=== PATIENT | female | born 1960 | race Caucasian/White ===

== ENCOUNTER 2023-02-04 12:44 | Day surgery (SDC) | payer BC ==
[2023-02-04] MEDS ORDERED: IBUP-24 PO (13:35)
[2023-02-04] MEDS ORDERED: IPRA3AMP31 NEB (13:35)
[2023-02-04] MEDS ORDERED: ATOR20TA66 PO (13:35)
[2023-02-04] MEDS ORDERED: LEVO88TA2 PO (13:36)
[2023-02-04] MEDS ORDERED: TIRZ5PEN SUBCUT (13:48)
[2023-02-04] MEDS ORDERED: AMOX-580 PO (13:48)
[2023-02-04 14:00] VITALS: RESP 16; O2SAT 97
[2023-02-04] MEDS ORDERED: fentaNYL/PF 50MCG/1 ML 2ML syringe ONE (14:28)
[2023-02-04] MEDS ORDERED: midazolam 1 mg/ML 2ml injection ONE ×2 (14:28→14:54)
[2023-02-04 14:37] LABS: BASOPHILS % (AUTO) 0.6 % (0-1); EOSINOPHILS # (AUTO) 0.1 X10'3 (0-0.9); EOSINOPHILS % (AUTO) 1.4 % (0-6); HEMATOCRIT 45.3 % (35.0-45.0); HEMOGLOBIN 15.6 g/dl (12.0-16.0); LYMPHOCYTES % (AUTO) 36.2 % (21-51); MEAN CORPUSCULAR HEMOGLOBIN 34.5 PG (27.0-31.0); MEAN CORPUSCULAR HGB CONC 34.5 g/dL (33.0-36.5); MEAN CORPUSCULAR VOLUME 100.1 FL (78-98); MEAN PLATELET VOLUME 8.7 FL (7.4-10.4); MONOCYTES # (AUTO) 0.5 X10'3 (0-0.9); MONOCYTES % (AUTO) 5.5 % (2-12); NEUTROPHILS # (AUTO) 4.7 X10'3 (1.8-7.7); NEUTROPHILS % (AUTO) 56.3 % (42-75); PLATELET COUNT 271 X10'3 (140-440); RED BLOOD COUNT 4.53 X10'6 (4.20-5.60); RED CELL DISTRIBUTION WIDTH 13.4 % (11.5-14.5); WHITE BLOOD COUNT 8.4 X10'3 (4.5-11.0)
[2023-02-04 14:39] LABS: ANION GAP 11 (8-16); BLOOD UREA NITROGEN 7 MG/DL (7-18); BUN/CREATININE RATIO 10.4 (10.0-20.0); CALCIUM 9.5 MG/DL (8.5-10.1); CHLORIDE 103 MMOL/L (99-107); CREATININE 0.67 MG/DL (0.40-0.90); GLUCOSE 91 MG/DL (70-104); POTASSIUM 3.7 MMOL/L (3.5-5.1); SODIUM 138 MMOL/L (135-145); TOTAL CARBON DIOXIDE 24.1 MMOL/L (24-32); eGFR 89 ML/MIN
[2023-02-04 14:42] LABS: PROTHROMBIN TIME 10.3 SECONDS (9.0-12.0)
[2023-02-04] MEDS ORDERED: LIDOcaine 1% (10mg/ml)w/preservative inj. 20ml MDV ONE (14:54)
[2023-02-04] MEDS ORDERED: clopidogrel 300mg tablet ONE (15:08)
[2023-02-04] MEDS ORDERED: aspirin 325mg tablet ONE (15:08)
[2023-02-04 15:37] VITALS: BP 175/88; PULSE 75; RESP 15; O2SAT 96
[2023-02-04 16:06] VITALS: BP 179/92; PULSE 78; RESP 14; O2SAT 95
[2023-02-04 16:21] VITALS: BP 175/90; PULSE 78; RESP 17; O2SAT 96
[2023-02-04 16:36] VITALS: BP 162/90; PULSE 79; RESP 15; O2SAT 95
[2023-02-04 17:06] VITALS: BP 144/83; PULSE 79; RESP 15; O2SAT 96
[2023-02-04] MEDS ORDERED: HYDROcodone/acetaminophen 10/325mg tab PO PRN (17:25)
[2023-02-04] MEDS ORDERED: HYDROcodone/acetaminophen 5mg/325mg tablet PO PRN (17:25)
== END 2023-02-04 17:45 | disposition home or self-care (01) ==
LOC: SSTAY O 12:44
PROVIDERS: ATTEND Student in an Organized Health Care Education/Training Program
DX: R94.39 Abnormal result of other cardiovascular function study (principal); I25.10 Atherosclerotic heart disease of native coronary artery without angina pectoris; I10 Essential (primary) hypertension; E78.5 Hyperlipidemia, unspecified; Z72.0 Tobacco use; Z79.899 Other long term (current) drug therapy
CPT/HCPCS: 36415; 80048; 82948; 85025; 85610; 93005; 93458; 99152; 99153; C1874; C9600; J2250; J3010; J3490; J7030; A6258; A6402; A6449; C1725; C1751; C1760; C1769; C1894

== ENCOUNTER 2024-01-20 11:39 | Day surgery (SDC) | payer BC ==
[2024-01-20] VITALS (10 sets, daily range): BP systolic 130–165; BP diastolic 65–84; PULSE 63–76; RESP 13–21; TEMP 99.1; O2SAT 92–99
[~2024-01-20] VITALS: Ht 162.6 cm; Wt 58.5 kg
[~2024-01-20 11:39] MED LIST: AMOX-580 PO; IBUP-24 PO; IPRA3AMP31 NEB; LEVO88TA2 PO; TIRZ5PEN SUBCUT
[2024-01-20] MEDS ORDERED: LORazepam 0.5 MG tablet PO PRN (12:35)
[2024-01-20] MEDS ORDERED: diphenhydrAMINE 25mg capsule PO PRN (12:35)
[2024-01-20] MEDS ORDERED: normal saline 1,000 ML IV SCH (12:35)
[2024-01-20] MEDS ORDERED: ROSU20TA98 PO (12:39)
[2024-01-20] MEDS ORDERED: METO-395 PO (12:39)
[2024-01-20] MEDS ORDERED: ASPI-1397 PO (12:39)
[2024-01-20] MEDS ORDERED: LOSA25TA41 PO (12:39)
[2024-01-20] MEDS ORDERED: NITR0.4T48 SL (12:39)
[2024-01-20] MEDS ORDERED: CLOP75TA34 PO (12:39)
[2024-01-20] MEDS ORDERED: ALBU18HF2 INH (12:39)
[2024-01-20] MEDS ORDERED: verapamil 2.5 mg/ml inj IV ONE (13:37)
[2024-01-20] MEDS ORDERED: fentaNYL/PF 50MCG/1 ML 2ML syringe ONE ×2 (13:37→15:30)
[2024-01-20] MEDS ORDERED: LIDOcaine 1% (10mg/ml) 2ml vial ONE (13:37)
[2024-01-20] MEDS ORDERED: midazolam 1 mg/ML 2ml injection ONE ×4 (13:37→15:27)
[2024-01-20] MEDS ORDERED: iohexol 350MG/ML 100ml bottle IV ONE ×2 (13:38→15:07)
[2024-01-20] MEDS ORDERED: heparin 1,000unit/ml 10ml vial 10 ML ONE (13:38)
[2024-01-20 13:45] LABS: BASOPHILS # (AUTO) 0.1 X10'3 (0-0.2); BASOPHILS % (AUTO) 0.6 % (0-1); EOSINOPHILS # (AUTO) 0.2 X10'3 (0-0.9); EOSINOPHILS % (AUTO) 2.2 % (0-6); HEMATOCRIT 45.6 % (35.0-45.0); HEMOGLOBIN 15.4 g/dl (12.0-16.0); LYMPHOCYTES # (AUTO) 2.5 X10'3 (1.1-4.8); LYMPHOCYTES % (AUTO) 27.4 % (21-51); MEAN CORPUSCULAR HEMOGLOBIN 36.3 PG (27.0-31.0); MEAN CORPUSCULAR HGB CONC 33.7 g/dL (33.0-36.5); MEAN CORPUSCULAR VOLUME 107.7 FL (78-98); MEAN PLATELET VOLUME 9.7 FL (7.4-10.4); MONOCYTES # (AUTO) 0.5 X10'3 (0-0.9); MONOCYTES % (AUTO) 5.6 % (2-12); NEUTROPHILS # (AUTO) 5.8 X10'3 (1.8-7.7); NEUTROPHILS % (AUTO) 64.2 % (42-75); PLATELET COUNT 281 X10'3 (140-440); RED BLOOD COUNT 4.23 X10'6 (4.20-5.60)
[2024-01-20] MEDS ORDERED: nitroGLYCERIN 500mcg/5mL D5W 5 ML IV ONE (13:51)
[2024-01-20 13:54] LABS: APTT 25 SECONDS (22-32); PROTHROMBIN TIME 10.9 SECONDS (9.0-12.0)
[2024-01-20 13:56] LABS: ALBUMIN 3.9 G/DL (3.4-5.0); ANION GAP 12 (8-16); BLOOD UREA NITROGEN 8 MG/DL (7-18); CALCIUM 9.5 MG/DL (8.5-10.1); CHLORIDE 104 MMOL/L (99-107); CHOL/HDL RATIO 3.3 (0.00-4.99); CHOLESTEROL 151 MG/DL (0-200); CREATININE 0.73 MG/DL (0.40-0.90); GLUCOSE 79 MG/DL (70-104); HDL CHOLESTEROL 46 MG/DL (35-60); LDL CHOLESTEROL 80 MG/DL (50-100); POTASSIUM 3.8 MMOL/L (3.5-5.1); SODIUM 141 MMOL/L (135-145); TOTAL CARBON DIOXIDE 25.3 MMOL/L (24-32); TRIGLYCERIDES 192 MG/DL (20-135); eCRCL 69 ML/MIN; eGFR 81 ML/MIN
[2024-01-20] MEDS ORDERED: LIDOcaine 1% 30ml preserv. free vial ONE (14:17)
[2024-01-20] MEDS ORDERED: ticagrelor 90mg tablet ONE (15:29)
[2024-01-20] MEDS ORDERED: TICA90TA2 PO (16:22)
== END 2024-01-20 18:15 | disposition home or self-care (01) ==
LOC: SSTAY O 11:39
PROVIDERS: ATTEND Internal Medicine Interventional Cardiology
DX: R07.89 Other chest pain (principal); I25.10 Atherosclerotic heart disease of native coronary artery without angina pectoris; I10 Essential (primary) hypertension; E78.00 Pure hypercholesterolemia, unspecified; E11.9 Type 2 diabetes mellitus without complications; E66.9 Obesity, unspecified; Z79.2 Long term (current) use of antibiotics; Z79.82 Long term (current) use of aspirin; Z79.02 Long term (current) use of antithrombotics/antiplatelets; Z79.899 Other long term (current) drug therapy; Z68.22 Body mass index [BMI] 22.0-22.9, adult; Z88.1 Allergy status to other antibiotic agents; Z88.8 Allergy status to other drugs, medicaments and biological substances
CPT/HCPCS: 36415; 80048; 80061; 82948; 85025; 85610; 85730; 92972; 93005; 93458; 99152; 99153; C1874; C9600; J1644; J2003; J2250; J3010; J3490; J7030; Q9967; A6258; C1725; C1751; C1760; C1769; C1894